=== PATIENT | male | born 1955 | race Caucasian/White ===

== ENCOUNTER 2016-07-16 08:36 | Emergency (ER) | payer MEDICARE ==
[2016-07-16] MEDS ORDERED: Cephalexin 250 MG CAP ONE (09:32)
[2016-07-16] MEDS ORDERED: Lidocaine 1% 20 ML MDV ONE (09:48)
[2016-07-16] MEDS ORDERED: cefTRIAXone\\ROCEPHIN 1 GM VIAL ONE (09:48)
[2016-07-16] MEDS ORDERED: methylPREDNISolone Sod Succ/PF 125 MG/2 ML VIAL ONE (09:48)
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
--- NOTE | 2016-07-16 10:27 | PICIS ---
[facility] EMERGENCY RECORD TRIAGE (FriJul 16, 2016 08:45 LGIB) TRIAGE NOTES: COUGH X2 WEEKS, SINUS PRESSURE. (FriJul 16, 2016 08:45 LGIB) PATIENT: AGE: 60, GENDER: male, : Fri1955, TIME OF GREET: FriJul 16, 2016 08:37, PREFERRED LANGUAGE: Palauan, ETHNICITY: Not or , ECODE BILLING MAP: [facility], SSN: [id number], Zip Code: [address], KG WEIGHT: 81.65, PHONE: , , , PERSON ID: [id number], PAYMENT: X Medicare, PCP: MD Olmos Kyle. (FriJul 16, 2016 08:45 LGIB) NAME: Francisco DoIon (08:57) COMPLAINT: COUGH, SINUS PRESSURE. (FriJul 16, 2016 08:45 LGIB) ADMISSION: URGENCY: 4 Non Urgent, ADMISSION SOURCE: Home, TRANSPORT: CAR, BED: ER -02. (FriJul 16, 2016 08:45 LGIB) SIRS SCORING: Heart Rate 55-109 (0), Temp range 96.8-101.1 (0), respiratory rate 12-24 (0), Mental Status altered: no (0), Total SIRS Score 0. (08:53 LGIB) PROVIDERS: TRIAGE NURSE: oSl Donald RN. (FriJul 16, 2016 08:45 LGIB) PREVIOUS VISIT ALLERGIES: digoxin. (FriJul 16, 2016 08:45 LGIB) digoxin. (08:50 LGIB) KNOWN ALLERGIES digoxin: Reaction: Hives, - RASH, STOPPED TAKING ON HIS OWN CURRENT MEDICATIONS clonazePAM: TABLET : Strength - 1 mg : ORAL Patient Dose: 1 tab(s) Oral 2 times a day. (08:56 LGIB) fludrocortisone: TABLET : Strength - 0.1 mg : ORAL Patient Dose: 1 tab(s) Oral once a day (in the morning). (08:56 LGIB) meloxicam: TABLET : Strength - 7.5 mg : ORAL Patient Dose: 1 tab(s) Oral once a day (in the morning). (08:56 LGIB) rOPINIRole: TABLET : Strength - 1 mg : ORAL Patient Dose: 1 tab(s) Oral once a day (in the morning). (08:56 LGIB) meTOPROLOL succinate: TABLET, EXTENDED RELEASE 24 HR : Strength - 50 mg : ORAL Patient Dose: 100 mg Oral once a day (at bedtime). (08:56 LGIB) [place]: TABLET : Strength - 5 mg-325 mg : ORAL Patient Dose: 1 tab(s) Oral 2 times a day. (08:57 LGIB) aspirin: TABLET : Strength - 325 mg : ORAL &a-1R&a+25V*p+0X*w0822Z*c202B*c15G*c2P*p-0X&a-25V&a+1R Name: Francisco Do : 1955 M60 MedRec: [id number] AcctNum: [id number] Prepared: milka Jul 16, 2016 10:25 by Interface Page 1 of 8 pMD [facility] EMERGENCY RECORD Patient Dose: 1 tab(s) Oral once a day. (08:57 LGIB) VITAL SIGNS VITAL SIGNS: BP: 133/89, Pulse: 93, Resp: 16 (Non-Labored), Temp: 98.4 (Oral), O2 sat: 96 on Room Air, Time: 07/16/2016 08:51. (08:51 LGIB) BP: 109/82, Pulse: 76, Resp: 16, Pain: 0, O2 sat: 99 on Room Air, Time: 07/16/2016 09:20. (09:20 JSMI) BP: 117/76, Pulse: 92, Resp: 16 (Non-Labored), Temp: 98.4 (Oral), Pain: 0, O2 sat: 96 on Room Air, Time: 07/16/2016 10:15. (10:15 LGIB) NURSING ASSESSMENT: CARDIOVASCULAR (09:00 JSMI) PAIN: Patient rates pain as 0 out of 10. CARDIOVASCULAR: Cardiovascular assessment findings include heart rate, irregular, Heart rhythm, atrial flutter. RESPIRATORY/CHEST: Breath sounds clear, Respiratory assessment findings include respiratory effort easy, Respirations regular, Conversing normally, Associated with cough. NURSING ASSESSMENT: RESPIRATORY /CHEST (08:57 JSMI) CONSTITUTIONAL: Complex assessment performed, Patient arrives ambulatory, Gait steady, History obtained from patient, Patient appears comfortable, Patient cooperative, Patient alert, Oriented to person, place and time, Skin warm, Skin dry, Skin normal in color, Mucous membranes pink, Mucous membranes moist, Patient is well-groomed, Patient complains of cough sinus pressure. PAIN: Patient rates pain as 0 out of 10. RESPIRATORY/CHEST: Breath sounds clear, Respiratory assessment findings include respiratory effort easy, Respirations regular, Conversing normally, Associated with cough, productive of, Notes: thick. NURSING PROCEDURE: DISCHARGE NOTE (10:16 LGIB) DISCHARGE: Patient discharged to home, ambulating without assistance, family driving, accompanied by //partner, Summary of Care printed/ provided, Patient requested and was provided an electronic copy of Discharge Instructions, Discharge instructions given to patient, Simple or moderate discharge teaching performed, Prescriptions given and instructions on side effects given, Above person(s) verbalized understanding of discharge instructions and follow-up care, Patient treated and evaluated by physician. BELONGINGS: Belongings and valuables with patient at time of discharge include:, Belongings remain with patient, Valuables remain with patient. NURSING PROCEDURE: EKG CHART (08:47 [facility]) EKG: EKG indicated for complaint of an irregular heart beat, 12 lead EKG performed on the left chest, done by js3, first EKG. &a-1R&a+25V*p+0X*t2642Y*c202B*c15G*c2P*p-0X&a-25V&a+1R Name: HiFrancisco : 1955 M60 MedRec: [id number] AcctNum: [id number] Prepared: Isaias Jul 16, 2016 10:25 by Interface Page 2 of 8 D [facility] EMERGENCY RECORD NURSING PROCEDURE: RESPIRATORY INTERVENTIONS (09:09 LGIB) RESPIRATORY INTERVENTIONS: Pre-intervention oxygen saturation 96%, Notes: lucerooneb. NURSING PROCEDURE: TRANSPORT TO TESTS TRANSPORT TO TESTS: Transport indicated to facilitate diagnosis, Patient transported to x-ray, via wheelchair, Accompanied by x-ray communication technician. (09:16 LGIB) FOLLOW-UP: After procedure, patient returned to emergency department. (09:24 LGIB) ORDER DETAILS Order Name: EKG 12 Lead in Emergency Room, Status: Active, Time: 09:07 07/16/2016, User: JOSUÉ, - Ordered for: DO Cardenas Joseph, - Entered by: DO Cardenas Joseph - milka Jul 16, 2016 09:07, - Quantity: 1, Order Name: ERRT * Smal Vol Neb Initial Trmt, Status: Active, Time: 09:07 07/16/2016, User: JOSUÉ, - Ordered for: DO Cardenas Joseph, - Entered by: DO Cardenas Joseph - Tue Jul 16, 2016 09:07, - Quantity: 1, Order Name: XR Chest Pa & Lat STANDARD, Status: Active, Time: 09:07 07/16/2016, User: JOSUÉ, - Ordered for: DO Cardenas Joseph, - Entered by: DO Cardenas Joseph - Tue Jul 16, 2016 09:07, - Quantity: 1. MEDICATION ADMINISTRATION SUMMARY Drug Name: Solu-MEDROL injection, Dose Ordered: 125 mg, Route: Intramuscular, Status: Given, Time: 09:59 07/16/2016, Drug Name: Rocephin injection, Dose Ordered: 1 g, Route: Intramuscular, Status: Given, Time: 09:59 07/16/2016, Drug Name: DuoNeb, Dose Ordered: 3 mL, Route: Nebulize, Status: Given, Time: 09:11 07/16/2016, Detailed record available in Medication Service section. MEDICATION SERVICE DuoNeb: Order: DuoNeb (ipratropium bromide/albuterol sulfate) - Dose: 3 mL : Nebulize Schedule: Now Ordered by: Stevo Cardenas DO Entered by: Stevo Cardenas DO milka Jul 16, 2016 09:08 , Acknowledged by: Sol Donald RN FriJul 16, 2016 09:08 Documented as given by: Sol Donald RN FriJul 16, 2016 09:11 Patient, Medication, Dose, Route and Time verified prior to administration. Site: Medication administered via Hand-held nebulizer, With oxygen, &a-1R&a+25V*p+0X*z3294V*c202B*c15G*c2P*p-0X&a-25V&a+1R Name: Francisco Do : 1955 M60 MedRec: [id number] AcctNum: [id number] Prepared: FriJul 16, 2016 10:25 by Interface Page 3 of 8 pMD [facility] EMERGENCY RECORD Correct patient, time, route, dose and medication confirmed prior to administration, Patient advised of actions and side-effects prior to administration, Allergies confirmed and medications reviewed prior to administration, Patient in position of comfort, Side rails up, Cart in lowest position, Family at bedside. Rocephin injection: Order: Rocephin injection (ceftriaxone sodium) - Dose: 1 g : Intramuscular Schedule: Now Ordered by: Stevo Cardenas DO Entered by: Stevo Cardenas DO FriJul 16, 2016 09:43 , Acknowledged by: Sol Donald RN FriJul 16, 2016 09:47 Documented as given by: Sol Donald RN Jul 16, 2016 09:59 Patient, Medication, Dose, Route and Time verified prior to administration. IM antibiotic, Medication administered to right buttock, Medication combined for administration with 1% lidocaine, Correct patient, time, route, dose and medication confirmed prior to administration, Patient advised of actions and side-effects prior to administration, Allergies confirmed and medications reviewed prior to administration, Patient in position of comfort, Side rails up, Cart in lowest position, Family at bedside. Solu-MEDROL injection: Order: Solu-MEDROL injection (methylprednisolone sod succ) - Dose: 125 mg : Intramuscular Ordered by: Stevo Cardenas DO Entered by: Stevo Cardenas DO FriJul 16, 2016 09:44 , Acknowledged by: Sol Donald RN Jul 16, 2016 09:47 Documented as given by: Sol Donald RN [facility] Jul 16, 2016 09:59 Patient, Medication, Dose, Route and Time verified prior to administration. IM medication, Medication administered to left buttock, Correct patient, time, route, dose and medication confirmed prior to administration, Patient advised of actions and side-effects prior to administration, Allergies confirmed and medications reviewed prior to administration, Patient in position of comfort, Side rails up, Cart in lowest position, Family at bedside. HPI COUGH (09:16 JPIP) CHIEF COMPLAINT: Patient presents for evaluation of cough, productive of white sputum, Patient presents for evaluation of Chest congestion, rhinorhea and sinus pressure. HISTORIAN: History provided by patient. LOCATION: No localizing symptoms. TIME COURSE: Sudden onset of symptoms, 2, weeks ago, There has been no change in the patient's symptoms over time, are constant. ASSOCIATED WITH: No associated chest pain, Associated with fever, subjective, Associated with nausea, Associated with upper respiratory infection. EXACERBATED BY: Patient's condition exacerbated by nothing. &a-1R&a+25V*p+0X*h6337Y*c202B*c15G*c2P*p-0X&a-25V&a+1R Name: Francisco Do : 1955 M60 MedRec: [id number] AcctNum: [id number] Prepared: Isaias Jul 16, 2016 10:25 by Interface Page 4 of 8 pMD [facility] EMERGENCY RECORD RELIEVED BY: Patient's condition relieved by nothing. ROS (09:18 JPIP) CONSTITUTIONAL: Historian reports chills, reports fever, reports malaise. EYES: Historian denies eye pain, denies eye redness, denies eye discharge. ENT: Historian reports rhinorrhea, reports sinus pain. CARDIOVASCULAR: Historian denies chest pain. RESPIRATORY: Historian reports cough, reports sputum. described as thick. GI: Historian reports nausea, denies vomiting. MUSCULOSKELETAL: Historian reports myalgias. SKIN: Historian denies rash, denies skin changes, denies skin lesions. NEUROLOGIC: Historian denies headache, denies lethargy, denies mental status changes. NOTES: All systems reviewed, negative except as described above. PAST MEDICAL HISTORY MEDICAL HISTORY: Past medical history includes cardiac history, arrhythmia, atrial fibrillation, Notes: head injury from fall off house, HEMRHOIDS. Notes: HYPOTENSION, CHRONIC BACK PROBLEMS, WAS ELECTROCUTED IN 1980, DR. GALDAMEZ (NEUROLOGIST). verified 07/16/16. (08:50 LGIB) MALE SURGICAL HISTORY: Surgical history of orthopedic surgery, back, Surgical history of tonsillectomy, LEFT KNEE SKIN GRAFTED,. PACEMAKER. verified 07/16/16. (08:50 LGIB) PSYCHIATRIC HISTORY: No previous psychiatric history. (08:50 LGIB) SOCIAL HISTORY: Lives at home, with family, Patient currently uses tobacco, Chews tobacco, Tobacco history notes: 1 CAN PER WEEK, Patient drinks socially, Patient denies drug use. verified 07/16/16. (08:50 LGIB) FAMILY HISTORY: Family history includes coronary artery disease, mother, Family history includes hypertension, mother. . (08:50 LGIB) NOTES: Nursing records reviewed, Medication list reviewed. (09:20 JPIP) PHYSICAL EXAM (09:18 JPIP) CONSTITUTIONAL: Vital Signs Reviewed, Patient afebrile, Pulse, tirregular, Blood pressure normal, Respiratory rate normal, Normal pulse oximetry, Patient appears, uncomfortable, Patient alert and oriented to person, place and time, Nursing notes reviewed. HEAD: Head exam included findings of head atraumatic, normocephalic. &a-1R&a+25V*p+0X*h6384O*c202B*c15G*c2P*p-0X&a-25V&a+1R Name: Francisco Do : 1955 M60 MedRec: [id number] AcctNum: [id number] Prepared: Isaias Jul 16, 2016 10:25 by Interface Page 5 of 8 pMD [facility] EMERGENCY RECORD EYES: Eye exam included findings of eyelids normal to inspection, Conjunctiva normal, Sclera normal, no periorbital ecchymosis, no periorbital edema, no periorbital erythema. ENT: Ear exam normal, external ear normal, tympanic membranes normal, no foreign body, no drainage, no bleeding, Pharynx exam normal, not injected, no swelling, symmetrical, Uvula exam normal, midline, no edema, Mouth exam normal, mucous membranes moist. NECK: Neck exam included findings of normal range of motion, Trachea midline, no cervical adenopathy, no tenderness. RESPIRATORY CHEST: Respiratory exam included findings of no respiratory distress, Breath sounds not clear, No wheezing, No rhonchi, Breath sounds not absent, Breath sounds not diminished, scattered crackles. CARDIOVASCULAR: Cardiovascular exam included findings of, rate normal, rhythm irregularly irregular, Heart sounds normal, no murmurs, no rub. UPPER EXTREMITY: Upper extremity exam included findings of inspection normal, Range of motion normal. NEURO: [place]den coma scale 15, Neuro exam findings include patient oriented to person, place and time, no focal motor deficits. SKIN: Skin exam included findings of skin warm, dry, and normal in color. LYMPHATIC: Lymphatic exam included findings of cervical nodes normal, Submandibular normal. PSYCHIATRIC: Psychiatric exam included findings of patient oriented to person place and time, Normal affect. EVENTS TRANSFER: Triage to Emergency Emergency Room -02. (FriJul 16, 2016 08:45 LGIB) Removed from Emergency Emergency Room -02. (10:17 LGIB) RADIOLOGYINTERPRETATION (09:41 JPIP) CHEST: Films of the chest show, no infiltrate, no pneumothorax, no hemothorax, no pleural effusion, chronic obstructive pulmonary disease. [place]: Preliminary review of x-rays by, ED Physician. EKG INTERPRETATION (09:55 JPIP) MONITOR STRIP: school lunch monitor strip interpreted by Emergency Department Physician, Monitor strip shows atrial fibrillation with controlled ventricular response, with no ectopics. 12 LEAD EKG INTERPRETATION: 12 lead EKG interpreted by Emergency Department Physician at time of study, 12 lead EKG shows, atrial fibrillation with controlled ventricular response, Rate (beats per minute): 71, with no ectopics, Conduction with, ST segments normal, T waves, Clinical impression:, dysrhythmia - atrial, other dysrhythmia intermitant paced rythm. &a-1R&a+25V*p+0X*r3401R*c202B*c15G*c2P*p-0X&a-25V&a+1R Name: Francisco Do : 1955 M60 MedRec: [id number] AcctNum: [id number] Prepared: FriJul 16, 2016 10:25 by Interface Page 6 of 8 pMD [facility] EMERGENCY RECORD O2SAT INTERPRETATION O2SAT: Continuous pulse oximetry, Oxygen saturation 96%, on room air, Oxygen saturation interpretation: Normal, No intervention required. (09:20 JPIP) Continuous pulse oximetry, Oxygen saturation 96%, on room air, Oxygen saturation interpretation: Normal, No intervention required. (09:40 JPIP) DOCTOR NOTES (09:54 JPIP) RE-EVALUATION: Routine re-evaluation, after administration of bronchodilator nebulizer treatments, The patient's condition is unchanged. PROBLEM LIST No recorded problems DIAGNOSIS (09:55 JPIP) FINAL: PRIMARY: upper respiratory infection. DISPOSITION PATIENT: Disposition Type: Discharge, Disposition: *Discharge Home, Condition: Good. (09:55 JPIP) Patient left the department. (10:17 LGIB) INSTRUCTION (09:54 JPIP) DISCHARGE: UPPER RESP INFECTION ANTIBIOTIC TREATMENT ADULT. FOLLOWUP: MD Nickolas, Pankaj, [facility], [address] [place] [address], [place] [id number], . SPECIAL: Follow up with Primary Care Physician within 72 hours Finish all your antibiotics Return to the Emergency Department for increased symptoms problems or concerns. PRESCRIPTION (09:53 JPIP) Amoxil: CAPSULE (HARD, SOFT, ETC.) : 500 mg : ORAL : Quantity: 1 Unit: mg Route: ORAL Schedule: 3 times a day (after meals) Dispense: 30 May substitute. Refills: No Refills . NOTES: No refills. Tessalon Perles: CAPSULE (HARD, SOFT, ETC.) : 100 mg : ORAL : Quantity: 1 Unit: cap(s) Route: ORAL Schedule: every 8 hours PRN Dispense: 30 May substitute. Refills: No Refills . NOTES: for cough No refills. IMAGING (10:17 LGIB) *DISCHARGE INSTRUCTIONS RECEIPT: Image captured from scanner. *SUPPLY CHARGE SHEET: Image captured from scanner. Martin: &a-1R&a+25V*p+0X*q9197G*c202B*c15G*c2P*p-0X&a-25V&a+1R Name: Francisco Do : 1955 M60 MedRec: [id number] AcctNum: [id number] Prepared: FriJul 16, 2016 10:25 by Interface Page 7 of 8 pMD [facility] EMERGENCY RECORD JPIP=DO Cardenas Joseph JSMI=ARLEEN Hickey, Haley LGIB=ARLEEN Donald, Sol &a-1R&a+25V*p+0X*w9111W*c202B*c15G*c2P*p-0X&a-25V&a+1R Name: Francisco Do : 1955 M60 MedRec: [id number] AcctNum: [id number] Prepared: FriJul 16, 2016 10:25 by Interface Page 8 of 8 pMD [facility]
--- NOTE | 2016-07-16 21:52 | RAD ---
CHEST TWO VIEWS 07/16/16 Comparison is made with the 11/08/15 study. The heart is normal in size and the lungs are clear. There is no infiltrate, effusion, or pulmonary edema. The vasculature and mediastinum appear normal. A unipolar cardiac pacer remains in place. IMPRESSION: No acute thoracic findings. POS: HOME
== END 2016-07-16 10:18 | disposition home or self-care (01) ==
LOC: BURERS 08:36
DX: J06.9 Acute upper respiratory infection, unspecified (principal); I48.91 Unspecified atrial fibrillation; F17.220 Nicotine dependence, chewing tobacco, uncomplicated; Z79.899 Other long term (current) drug therapy
CPT/HCPCS: 71020; 93005; 94640; 96372; J0696; J2001; J2930; J7620

== ENCOUNTER 2016-12-04 07:19 | Emergency (ER) | payer MEDICARE ==
[2016-12-04 08:02] LABS: ALT (SGPT) 12 U/L (8-55); AST (SGOT) 16 U/L (5-34); Albumin 4.2 g/dL (3.4-4.8); Alkaline Phosphatase 55 U/L (40-150); Anion Gap 14 mmol/L (10-20); BUN (Urea Nitrogen) 18 mg/dL (8.4-25.7); Bilirubin, Total 0.7 mg/dL (0.2-1.2); Calc. Creatinine Clearance 0 mL/min (70-130); Calcium 8.8 mg/dL (7.8-10.44); Carbon Dioxide 25 mmol/L (23-31); Chloride 103 mmol/L (98-107); Estimated GFR-MDRD 65; Globulin 3.3 g/dL (2.4-3.5); Glucose 86 mg/dL (80-115); Potassium 3.8 mmol/L (3.5-5.1); Protein, Total 7.5 g/dL (5.8-8.1); Sodium 138 mmol/L (136-145)
[2016-12-04 08:05] LABS: CKMB 0.9 ng/mL (0-6.6); Troponin I Less than 0.010 ng/mL (< 0.028)
[2016-12-04 08:15] LABS: #Basophils 0.1 thou/uL (0.0-0.2); #Eosinphils 0.1 thou/uL (0.0-0.7); #Lymphocytes 1.3 thou/uL (1.20-3.40); #Monocytes 0.4 thou/uL (0.11-0.59); #Neutrophils 2.5 thou/uL (1.40-6.50); %Basophils 1.4 % (0.0-1.0); %Eosinophils 3.3 % (0.0-10.0); %Lymphocytes 29.5 % (21.0-51.0); %Monocytes 9.9 % (0.0-10.0); %Neutrophils 55.9 % (42.0-75.0); Hemoglobin 12.3 g/dL (14.0-18.0); Mean Corpuscular HGB CONC 30.8 g/dL (32.0-36.0); Mean Corpuscular Hemoglobin 21.9 pg (27.0-31.0); Mean Corpuscular Volume 70.9 fl (80.0-94.0); Mean Platelet Volume 7.6 fL (7.4-10.4); Platelet Count 206 thou/uL (130-400); RBC Distribution Width 15.7 % (11.5-14.5); Red Blood Cell (RBC) Count 5.63 mill/uL (4.70-6.10); White Blood Cell (WBC) Count 4.5 thou/uL (4.8-10.8)
[2016-12-04 08:16] LABS: Anisocytosis SLIGHT = 6-15 cells (100X) (0-5/hpf); MDiff Complete? YES; Microcytosis SLIGHT = 6-15 cells (100X) (0-5/hpf); PLT Morphology Comment Appears Adequate
--- NOTE | 2016-12-04 14:44 | RAD ---
PORTABLE CHEST: Date: 12-04-16 An AP portable film at 0745 is presented and compared with a 07-16-16 study. FINDINGS: The cardiac pacer remains in place. There is no vascular congestion, edema, or pleural effusion. The lungs are clear. IMPRESSION: No acute thoracic findings. POS: HOME
== END 2016-12-04 08:47 | disposition home or self-care (01) ==
LOC: BURERS 07:19
DX: E86.0 Dehydration (principal); I48.91 Unspecified atrial fibrillation; F17.220 Nicotine dependence, chewing tobacco, uncomplicated; Z79.899 Other long term (current) drug therapy; Z79.82 Long term (current) use of aspirin
CPT/HCPCS: 71010; 80053; 82553; 83690; 83880; 84484; 85025; 93005; 96360

== ENCOUNTER 2017-10-27 14:09 | Emergency (ER) | payer MEDICARE ==
[2017-10-27] MEDS ORDERED: Nitroglycerin 2% Ointment 1 INCH/1 GM Packet ONE (14:28)
[2017-10-27 14:40] LABS: INR-International Normal Ratio 1.2; PTT 32.1 SEC (22.9-36.1); Prothrombin Time 14.9 SEC (12.0-14.7)
[2017-10-27 14:46] LABS: #Basophils 0.1 thou/uL (0.0-0.2); #Eosinphils 0.2 thou/uL (0.0-0.7); #Lymphocytes 1.4 thou/uL (1.20-3.40); #Monocytes 0.5 thou/uL (0.11-0.59); #Neutrophils 2.2 thou/uL (1.40-6.50); %Basophils 1.6 % (0.0-1.0); %Eosinophils 4.4 % (0.0-10.0); %Lymphocytes 32.1 % (21.0-51.0); %Monocytes 11.8 % (0.0-10.0); %Neutrophils 50.1 % (42.0-75.0); Hemoglobin 11.4 g/dL (14.0-18.0); Hypochromia MODERATE=16-30 cells (100X) (0-5/hpf); MDiff Complete? YES; Mean Corpuscular Hemoglobin 21.2 pg (27.0-31.0); Mean Corpuscular Volume 66.3 fl (80.0-94.0); Mean Platelet Volume 7.3 fL (7.4-10.4); Microcytosis MODERATE=15-30 cells (100X) (0-5/hpf); Platelet Count 185 thou/uL (130-400); RBC Distribution Width 15.7 % (11.5-14.5); Red Blood Cell (RBC) Count 5.37 mill/uL (4.70-6.10); White Blood Cell (WBC) Count 4.4 thou/uL (4.8-10.8)
[2017-10-27 14:50] LABS: ALT (SGPT) 12 U/L (8-55); AST (SGOT) 18 U/L (5-34); Albumin 4.1 g/dL (3.4-4.8); Alkaline Phosphatase 61 U/L (40-150); Anion Gap 13 mmol/L (10-20); BUN (Urea Nitrogen) 22 mg/dL (8.4-25.7); Bilirubin, Total 0.5 mg/dL (0.2-1.2); Calc. Creatinine Clearance 0 mL/min (70-130); Calcium 9.1 mg/dL (7.8-10.44); Carbon Dioxide 26 mmol/L (23-31); Chloride 104 mmol/L (98-107); Estimated GFR-MDRD 67; Globulin 3.4 g/dL (2.4-3.5); Glucose 84 mg/dL (80-115); Potassium 3.8 mmol/L (3.5-5.1); Protein, Total 7.5 g/dL (5.8-8.1); Sodium 139 mmol/L (136-145)
[2017-10-27 14:51] LABS: CKMB 1.4 ng/mL (0-6.6); Troponin I Less than 0.010 ng/mL (< 0.028)
[2017-10-27 16:05] LABS: Amphetamine Not Detected (NotDetected); Barbiturates Screen Not Detected (NotDetected); Benzodiazepine Screen Not Detected (NotDetected); Cocaine Metabolite Screen Not Detected (NotDetected); Medtox Control Line Valid? VALID (VALID); Methadone Not Detected (NotDetected); Methamphetamine Not Detected (NotDetected); Opiate Screen Detected (NotDetected); Oxycodone Screen Not Detected (NotDetected); Phencyclidine (PCP) Not Detected (NotDetected); THC/Cannabinoid Screen Not Detected (NotDetected); Tricyclic Screen Not Detected (NotDetected)
[2017-10-27 16:52] LABS: Troponin I Less than 0.010 ng/mL (< 0.028)
--- NOTE | 2017-10-27 21:20 | RAD ---
AT PORTABLE CHEST: 10/27/2017 1419 HOURS COMPARISON: 08/30/2017 FINDINGS: Heart size is unchanged. A cardiac pacer is in place, as before. There is no vascular congestion, e arvin, or pleural effusion. The lungs are clear. The trachea is midline. IMPRESSION: No acute thoracic findings. POS: HOME
== END 2017-10-27 17:21 | disposition home or self-care (01) ==
LOC: BURERS 14:09
DX: R07.2 Precordial pain (principal); I48.91 Unspecified atrial fibrillation; F17.220 Nicotine dependence, chewing tobacco, uncomplicated; Z79.82 Long term (current) use of aspirin; Z79.899 Other long term (current) drug therapy
CPT/HCPCS: 71045; 80053; 80306; 82553; 83880; 84484; 85025; 85610; 85730; 94760

== ENCOUNTER 2018-07-05 17:41 | Emergency (ER) | payer MEDICARE ==
[2018-07-05 18:21] LABS: INR-International Normal Ratio 1.2; PTT 30.1 SEC (22.9-36.1)
[2018-07-05 18:28] LABS: ALT (SGPT) 13 U/L (8-55); AST (SGOT) 18 U/L (5-34); Alkaline Phosphatase 54 U/L (40-150); Anion Gap 14 mmol/L (10-20); BUN (Urea Nitrogen) 19 mg/dL (8.4-25.7); Bilirubin, Total 0.4 mg/dL (0.2-1.2); CK (CPK) 70 U/L (30-200); Calc. Creatinine Clearance 0 mL/min (70-130); Calcium 9.2 mg/dL (7.8-10.44); Carbon Dioxide 27 mmol/L (23-31); Chloride 104 mmol/L (98-107); Estimated GFR-MDRD 67; Glucose 82 mg/dL (80-115); Potassium 3.9 mmol/L (3.5-5.1); Sodium 141 mmol/L (136-145)
[2018-07-05 18:32] LABS: #Basophils 0.1 thou/uL (0.0-0.2); #Eosinphils 1.4 thou/uL (0.0-0.7); #Lymphocytes 1.8 thou/uL (1.20-3.40); #Monocytes 0.7 thou/uL (0.11-0.59); #Neutrophils 4.2 thou/uL (1.40-6.50); %Basophils 1.4 % (0.0-1.0); %Lymphocytes 22.1 % (21.0-51.0); %Neutrophils 51.5 % (42.0-75.0); Hemoglobin 11.4 g/dL (14.0-18.0); Hypochromia MARKED = >30 cells (100X) (0-5/hpf); MDiff Complete? YES; Mean Corpuscular HGB CONC 30.8 g/dL (32.0-36.0); Mean Corpuscular Volume 64.9 fL (78.0-98.0); Mean Platelet Volume 7.6 fL (7.4-10.4); Microcytosis MODERATE=15-30 cells (100X) (0-5/hpf); Platelet Count 196 thou/uL (130-400); RBC Distribution Width 15.3 % (11.5-14.5); White Blood Cell (WBC) Count 8.1 thou/uL (4.8-10.8)
[2018-07-05] MEDS ORDERED: Acetaminophen/Codeine 30-300mg Tablet ONE (18:56)
--- NOTE | 2018-07-05 19:22 | RAD ---
PORTABLE CHEST: Date: 07-05-18 FINDINGS: An AP portable film at 1750 shows mild cardiomegaly that is no different than on the 12-08-17 study. T here is no congestive change, pleural effusion, or acute pulmonary infiltrate. Minimal right basilar haziness probably due to atelectasis and/or positioning. The cardiac pacer remains in place. IMPRESSION: Cardiomegaly but no acute findings. POS: HOME
--- NOTE | 2018-07-05 19:50 | CT ---
CT BRAIN WITHOUT CONTRAST: Date: 07-05-18 Comparison: 09-05-14 FINDINGS: The ventricles are normal in size with no shift. There is no definite sign of stroke. There is a subt le low density area in the left posterior frontal lobe that may or may not be significant. It is just under 1 cm in size. There is no bleeding, mass, or edema. The calvarium appears normal. The visible paranasal sinuses and mastoid air cells are clear. IMPRESSION: No definite acute intracranial findings. Small subtle low density area in the left posterior frontal lobe of indeterminate significance. If clinical suspicion of stroke is high, then an MRI would be mor e sensitive. My understanding is that the patient has some left sided symptoms which would not fit wi th this location. POS: HOME
== END 2018-07-05 19:27 | disposition home or self-care (01) ==
LOC: BURERS 17:41
DX: M54.5 Low back pain (principal); I48.91 Unspecified atrial fibrillation; F17.220 Nicotine dependence, chewing tobacco, uncomplicated; Z79.82 Long term (current) use of aspirin; Z79.899 Other long term (current) drug therapy; W19.XXXA Unspecified fall, initial encounter
CPT/HCPCS: 70450; 71045; 80053; 82550; 83605; 84484; 85025; 85610; 85730; 93005

== ENCOUNTER 2019-04-13 15:21 | Emergency (ER) | payer MEDICARE ==
[~2019-04-13 15:21] MED LIST: Iopamidol 370 76% 100 ML VIAL ONE
[2019-04-13 16:46] LABS: ALT (SGPT) 14 U/L (8-55); AST (SGOT) 21 U/L (5-34); Alkaline Phosphatase 59 U/L (40-110); Anion Gap 11 mmol/L (10-20); BUN (Urea Nitrogen) 12 mg/dL (8.4-25.7); Bilirubin, Total 0.6 mg/dL (0.2-1.2); Calc. Creatinine Clearance 0 mL/min (70-130); Calcium 9.3 mg/dL (7.8-10.44); Carbon Dioxide 30 mmol/L (23-31); Chloride 102 mmol/L (98-107); Estimated GFR-MDRD 68; Globulin 3.2 g/dL (2.4-3.5); Glucose 86 mg/dL (80-115); Lipase 30 U/L (8-78); Protein, Total 7.2 g/dL (5.8-8.1); Sodium 139 mmol/L (136-145)
[2019-04-13 17:03] LABS: Bilirubin Negative (Negative); Blood, Urine Negative (Negative); Clarity Clear (Clear); Glucose, Urine (Dipstick) Negative (Negative); Leukocyte Trace (Negative); Nitrite Negative (Negative); Protein, Urine (Dipstick) Negative (Neg-Trace); Urobilinogen 0.2 mg/dL (Less than 2)
[2019-04-13 17:05] LABS: #Basophils 0.1 thou/uL (0.0-0.2); #Eosinphils 0.3 thou/uL (0.0-0.7); #Lymphocytes 1.9 thou/uL (1.20-3.40); #Monocytes 0.5 thou/uL (0.11-0.59); #Neutrophils 3.4 thou/uL (1.40-6.50); %Basophils 1.1 % (0.0-1.0); %Eosinophils 4.5 % (0.0-10.0); %Lymphocytes 30.5 % (21.0-51.0); %Monocytes 8.6 % (0.0-10.0); %Neutrophils 55.3 % (42.0-75.0); Hemoglobin 10.6 g/dL (14.0-18.0); Hypochromia MODERATE=16-30 cells (100X) (0-5/hpf); MDiff Complete? YES; Mean Corpuscular HGB CONC 29.5 g/dL (32.0-36.0); Mean Corpuscular Volume 67.8 fL (78.0-98.0); Mean Platelet Volume 7.4 fL (7.4-10.4); Microcytosis MODERATE=15-30 cells (100X) (0-5/hpf); Platelet Count 183 thou/uL (130-400); RBC Distribution Width 16.1 % (11.5-14.5); Red Blood Cell (RBC) Count 5.32 mill/uL (4.70-6.10); White Blood Cell (WBC) Count 6.1 thou/uL (4.8-10.8)
[2019-04-13 17:15] LABS: Bacteria/HPF None Seen HPF (None Seen); Broad Cast None Seen LPF (None Seen); Calcium Oxalate Crystals None Seen HPF (None Seen); Cellular Cast None Seen LPF (None Seen); Epithelial Cast None Seen LPF (None Seen); Fatty Cast None Seen LPF (None Seen); Mucous/LPF None Seen LPF (<2+); Other Casts None Seen LPF (None Seen); Oval Fat Bodies/HPF None Seen HPF (None Seen); RBC/HPF None Seen HPF (0-3); Red Blood Cell Cast None Seen LPF (None Seen); Renal Epithelial None Seen HPF (None Seen); Sperm/HPF None Seen HPF (None Seen); Squamous Epithelial None Seen HPF (0-3); Transitional Epithelial None Seen HPF (None Seen); Trichomonas/HPF None Seen HPF (None Seen); Triple Phosphate Crystal None Seen HPF (None Seen); Unclassified Crystals None Seen HPF (None Seen); WBC/HPF None Seen HPF (0-3); Waxy Cast None Seen LPF (None Seen); White Blood Cell Cast None Seen LPF (None Seen); Yeast-Budding None Seen HPF (None Seen); Yeast-Hyphae None Seen HPF (None Seen)
--- NOTE | 2019-04-13 18:22 | CT ---
CT ABDOMEN AND PELVIS WITH CONTRAST: 04/13/[address] of the abdomen and pelvis was performed for evaluation of left lower quadrant pain. The vijay g bases are clear. There are two tiny noncalcified nodules in the lower right lung measuring 3 and 4 mm in size. There odds of significance is very low. One may wish to do a follow-up scan in six month s to a year depending upon the clinical history. The liver, spleen, pancreas, gallbladder, adrenal glands, kidneys, and abdominal aorta showed no acut e findings. The renal pelvis on the left and the left ureter was perhaps slightly more prominent in s ize than one sometimes sees, but I did not find any obvious reason for obstruction such as stones. No stones were appreciated in either kidney. The bowel shows no distention to suggest obstruction, though there is a rather large amount of fecal material present. Some gas and fluid is present in some loops of small bowel but the pattern is nonsp ecific. There are no inflammatory changes around the bowel. No free air or free fluid was seen. CT of the pelvis shows a somewhat distended urinary bladder. No pelvic masses were seen. There was no fluid, inflammatory change, or signs of diverticulitis. Degenerative changes are prominent in the ej mbar spine. There is a mild compression of L3 that is obviously old. IMPRESSION: 1. Mild increase in the amount of stool in the colon. Nonspecific gas pattern otherwise. 2. Left ureter marginally larger than the right but no particular cause for it is seen. There i s no true hydronephrosis. 3. Other findings as noted above. Findings discussed with Dr. Woodson at 1812 on 04/13/19. POS: HOME
== END 2019-04-13 18:28 | disposition home or self-care (01) ==
LOC: BURERS 15:21
DX: A08.4 Viral intestinal infection, unspecified (principal); I48.91 Unspecified atrial fibrillation; F17.220 Nicotine dependence, chewing tobacco, uncomplicated; Z79.82 Long term (current) use of aspirin; Z79.899 Other long term (current) drug therapy
CPT/HCPCS: 74177; 80053; 81003; 81015; 83605; 83690; 85025; 94760; Q9967

== ENCOUNTER 2020-11-03 13:47 | Outpatient (CLI) | payer MEDICARE | END 2020-11-03 13:48 | disposition home or self-care (01) | LOC: BURRAD 13:47 | PROVIDERS: ATTEND Family Medicine | DX: M25.512 Pain in left shoulder (principal); R07.81 Pleurodynia | CPT/HCPCS: 71046 ==

== ENCOUNTER 2021-09-23 20:41 | Emergency (ER) | payer MEDICARE ==
[2021-09-23 21:52] LABS: Hemoglobin 9.7 g/dL (14.0-18.0); Mean Corpuscular HGB CONC 29.7 g/dL (32.0-36.0); Mean Corpuscular Hemoglobin 19.7 pg (27.0-31.0); Mean Corpuscular Volume 66.3 fL (78.0-98.0); Mean Platelet Volume 6.7 fL (7.4-10.4); Platelet Count 183 thou/uL (130-400); RBC Distribution Width 18.3 % (11.5-14.5); Red Blood Cell (RBC) Count 4.92 mill/uL (4.70-6.10); White Blood Cell (WBC) Count 5.2 thou/uL (4.8-10.8)
[2021-09-23 21:58] LABS: ALT (SGPT) 12 U/L (8-55); AST (SGOT) 17 U/L (5-34); Albumin 3.5 g/dL (3.4-4.8); Alkaline Phosphatase 46 U/L (40-110); Anion Gap 14 mmol/L (10-20); BUN (Urea Nitrogen) 21 mg/dL (8.4-25.7); Bilirubin, Total 0.5 mg/dL (0.2-1.2); Calc. Creatinine Clearance 0 mL/min (70-130); Calcium 8.4 mg/dL (7.8-10.44); Carbon Dioxide 27 mmol/L (23-31); Chloride 104 mmol/L (98-107); Globulin 2.8 g/dL (2.4-3.5); Glucose 84 mg/dL (80-115); Potassium 3.7 mmol/L (3.5-5.1); Protein, Total 6.3 g/dL (5.8-8.1); Sodium 141 mmol/L (136-145)
[2021-09-23 22:21] LABS: #Eosinphils 0.3 thou/uL (0.0-0.7); #Lymphocytes 1.7 thou/uL (1.20-3.40); #Monocytes 0.6 thou/uL (0.11-0.59); #Neutrophils 2.6 thou/uL (1.40-6.50); %Basophils 0.8 % (0.0-1.0); %Eosinophils 5.2 % (0.0-10.0); %Lymphocytes 32.6 % (21.0-51.0); %Monocytes 10.7 % (0.0-10.0); %Neutrophils 50.7 % (42.0-75.0); Anisocytosis MODERATE=16-30 cells (100X) (0-5/hpf); MDiff Complete? YES; Microcytosis MODERATE=15-30 cells (100X) (0-5/hpf); Platelet Morphology Comment Appears Adequate
== END 2021-09-23 23:09 | disposition home or self-care (01) ==
LOC: BURERS 20:41
DX: R07.89 Other chest pain (principal); I48.91 Unspecified atrial fibrillation; F17.220 Nicotine dependence, chewing tobacco, uncomplicated
CPT/HCPCS: 36415; 71045; 80053; 83880; 84484; 85025; 93005